=== PATIENT | male | born 1990 | race American Indian/Alaskan Native ===

== ENCOUNTER 2020-10-08 06:40 | Emergency (ER) | payer SELFPAY ==
[2020-10-08 07:32] VITALS: BP 123/75
== END 2020-10-08 07:20 | disposition left against medical advice (07) ==
LOC: ED 06:40
DX: K08.89 Other specified disorders of teeth and supporting structures (principal); Z53.21 Procedure and treatment not carried out due to patient leaving prior to being seen by health care provider